=== PATIENT | male | born 1990 | race Caucasian/White ===

== ENCOUNTER 2022-09-02 03:34 | Day surgery (SDC) | payer OTHER, SELFPAY ==
--- NOTE | 2022-08-22 14:51 | PC.NURSE ---
Report to the Outpatient Waiting Room, entrance under the green pavilion located off [facility], at time _0600_ on date _09/02/22_. Planned Procedure Time: _0730_. Time changes happen often and if your time is changed the preop area will call you the afternoon before. - You and your visitor will be asked to self-screen and do not enter if you have any COVID symptoms. - A mask is optional within the hospital at this time. Patients may have clear liquids (water, carbonated beverages, clear teas, apple juice) until 3 hours prior to surgery with a maximum of 20 ounces. - No food from midnight until time of surgery - Infants may have breast milk until 4 hours before surgery, formula 6 hours prior to surgery. - Children will be allowed to drink immediately following surgery. If applicable, please bring a bottle or sippy cup to assist with drinking. Juice, water, soda, and popsicles are readily available. For infants on formula, please bring formula the day of surgery. Pacifiers are allowed. Take the following medications with a SIP of water the morning of surgery: _None__ DO NOT STOP ANY OF YOUR OTHER PRESCRIPTION MEDICATIONS PRIOR TO SURGERY ?EXCEPT THE FOLLOWING Medications to discontinue per physician _Supplement or vitamins 3 days prior to surgery__ Date to take last dose Please no make-up, nail kinyarwanda, hairspray, perfume, deodorant, or body powder the day of surgery. No jewelry (including any body piercings) or valuables the day of surgery, leave them at home. Please take a shower or bath the night before, or the morning of, surgery with an antibacterial soap. Wear comfortable, loose fitting clothing. Children are encouraged to wear pajamas. - Jewelry must be removed prior to entering the operating room. Rings and piercings that are not removed may be cut off. - The hospital will not accept responsibility for valuables. - Please leave all valuables, including medications, at home the day of surgery. If you are going home after surgery, a licensed grain combine driver must drive you home. - NO public transportation without another adult if you receive anesthesia. - We recommend that an adult stay with you for 24 hours following discharge. - We also recommend that you do not drive, make important decision, drink alcoholic beverages, or take any drugs that were not prescribed by your health care provider for at least 24 hours after your discharge time. For Pediatric surgeries, we recommend two adults accompany the child home. Follow any additional instructions given to you from your surgeon. If you or anyone in your household have experienced Covid symptoms in the past week, please notify your surgeon or the nurse liaison at the phone number below for possible testing. Telephone instructions given to _Patient__and asked if any additional questions and then verbalized understanding. Patient advised to call surgeon office or pre surgery nurse liaison [phone] if any additional questions.
[2022-08-22 14:59] VITALS: BMI 39.7
[2022-09-02] VITALS (8 sets, daily range): BP systolic 135–156; BP diastolic 88–100; PULSE 56–88; RESP 12–18; TEMP 36.7–36.8; O2SAT 94–100
[2022-09-02] MEDS: ACETAMINOPHEN 500 MG TABLET 1000 MG PO (06:36)
--- NOTE | 2022-09-02 06:44 | WPDANESEPPF ---
Anes - Initial Pre Proc Eval Procedure: Operation Date: 09/02/22 07:30 Proposed Procedures p Septoplasty, - Terry Paz MD s Bilateral Turbinate Reduction - Terry Paz MD Date/Time: 09/02/22 06:44 Surgeon: Terry Paz MD Pre Op Diagnosis: deviated septum, bilateral turbinate reduction Patient Data Age: 32 Gender: M Height: 1.96 m Weight: 149.2 kg Last Vital Signs Temp 36.8 C 09/02/22 06:22 Pulse 70 09/02/22 06:22 Resp 16 09/02/22 06:22 BP 148/88 H 09/02/22 06:22 Pulse Ox 98 09/02/22 06:22 O2 Del Method Room Air 09/02/22 06:22 Allergies Allergy/AdvReac Type Severity Reaction Status Date / Time No Known Allergies Allergy Verified 09/02/22 06:33 Home Medications Medication Instructions Recorded Confirmed Type fluticasone propionate 50 1 - 2 spray intranasal DAILY 08/22/22 09/02/22 History mcg/actuation nasal spray,suspension Patient hx anesthesia problems: none Family hx anesthesia problems: none Results Review: All pre-operative results and documents have been reviewed as part of the pre-operative evaluation. [facility] Past Medical History Medical History (Updated 09/02/22 @ 06:45 by Mike Victor MD) HTN (hypertension) Obesity CHNI on CPAP Surgical History Surgical History (Updated 09/02/22 @ 06:45 by Mike Victor MD) H/O wisdom tooth extraction Social History Social History Smoking status: Never smoker Alcohol intake: current Alcohol use details: Pt stated 0-3 a week Substance use: never Substance use type: does not use Living arrangements: with family Spiritual care concerns: No Anes - Eval Final PreProcedure Day of Procedure 09/02/22 06:44 Patient weight: obese Heart: regular rate and rhythm Lungs: clear to auscultation Airway: Mallampati scale class II Neurological: alert and oriented Last oral intake: >/= 8 hours ASA classification: III Emergent: no Anesthetic plan: proceed Anesthesia type and monitoring: general ETT and standard monitoring Results Review: All pre-operative results and documents have been reviewed as part of the pre-operative evaluation. Informed Consent: The patient's anesthetic plan and its attendant risks and benefits were discussed with the patient/family/POA. Questions were solicited and answers provided to the satisfaction of the patient/family/POA.
[2022-09-02] MEDS: LACTATED RINGERS 1,000 ML 30 ML IV CONT (06:56)
[2022-09-02] MEDS: OXYMETAZOLINE HCL 0.05% NAS 15 ML BTL (*BKC) 1 SPRAY NASAL (07:15)
--- NOTE | 2022-09-02 07:20 | PM.IMHP ---
H&P: HPI History of Present Illness Date/Time: 09/02/22 07:20 Chief Complaint: Nasal dyspnea Review of Systems Review of Systems: All systems reviewed & are unremarkable except as noted in HPI and below PMFSH Past Medical History Medical History HTN (hypertension) Obesity CHIN on CPAP Surgical History Surgical History H/O wisdom tooth extraction Social History Social History Smoking status: Never smoker Alcohol intake: current Alcohol use details: Pt stated 0-3 a week Substance use: never Substance use type: does not use Living arrangements: with family Spiritual care concerns: No Meds Home Medications and Allergies Home Medications Medication Instructions Recorded Confirmed Type fluticasone propionate 50 1 - 2 spray intranasal DAILY 08/22/22 09/02/22 History mcg/actuation nasal spray,suspension Allergies Allergy/AdvReac Type Severity Reaction Status Date / Time No Known Allergies Allergy Verified 09/02/22 06:33 Vital Signs Vital Signs - 24 hr 09/02/22 06:22 Temperature 36.8 C Pulse Rate 70 Respiratory Rate 16 Blood Pressure 148/88 H Pulse Oximetry 98 Oxygen Delivery Room Air Exam Narrative: deviated septum, turbinates. Rest of exam wnl Assessment and Plan Assessment and plan (1) Deviated septum: Code(s): J34.2 - Deviated nasal septum Status: Acute Plan Kendrick has CHIN and is here for correction of nasal septal deviation. r/b/a reviewed, all questions answered and he agrees to proceed with surgery today. Refer to outpt H&P for full details.
--- NOTE | 2022-09-02 07:21 | WPDHPUPDATE1 ---
History and Physical Update Update Date/Time: 09/02/22 07:21 History and Physical has been reviewed, including an updated exam of the patient. There are NO changes in the patient's condition. Risks, benefits, and alternatives have been discussed and questions answered. Patient agrees to proceed with procedure.
[2022-09-02] MEDS: ceFAZolin 3 GM/D5W 100 ML 100 ML IVPB (07:30)
[2022-09-02] MEDS: LIDOCAINE HCL 1% LOCAL INJ 20 ML VIAL 5 ML INFILTRATE (08:06)
--- NOTE | 2022-09-02 08:24 | W.PM.PROC2 ---
Procedure Note - Detailed Date of Procedure 09/02/22 Pre-op Diagnosis deviated septum, bilateral turbinate reduction Post-op Diagnosis Same Procedure Performed Septoplasty, bilateral inferior turbinoplasty Surgeon Terry Paz MD Anesthesia General Indications Chronic nasal dyspnea Findings Left septal spur, significant turbinate hypertrophy, bilateral garcia splints placed Description of Procedure After obtaining informed consent and proper site verification the patient was brought to the operating room and placed on the operating table in the supine position. They were placed under general endotracheal anesthesia by the anesthesia provider. The patient was then draped in standard fashion for septoplasty and turbinoplasty. A timeout was performed and the correct patient and procedure were verified. The nasal cavity was injected with 1% lidocaine with 1-100,000 epinephrine and packed with afrin-soaked cottonoid pledgets. ? Attention was then directed to the nasal septum. A hemitransfixion incision was made in the left caudal septum and a mucoperichondrial flap was elevated in the usual fashion. The flap was elevated under endoscopic visualization and the remainder of the case was performed with endoscopic assistance. Using a D-knife, an incision was made through the cartilaginous septum with care to preserve the appropriate caudal and dorsal ?L-strut? of cartilage. The cartilage was then disarticulated from the bony-cartilaginous junction and the deviated cartilage was removed. Further deviated bone and cartilage was removed from the maxillary crest and posterior bony septum with care to avoid injury to the mucoperichondrial flap using a combination of dissection and [place] forceps. Once this was completed, the hemitransfixion incision was closed using simple interrupted 4-0 chromic suture. A quilting stitch to reapproximate the mucoperichondrial flaps was then placed using 4-0 plain gut suture on a Brian needle. ? Next attention was directed to the turbinates. Using a 0? telescope and 2mm turbinate blade microdebrider, a stab incision was made in the anterior face of the turbinate and dissection was carried posterior to perform submucosal resection. Next the turbinate was outfractured using a blunt instrument. A similar procedure was then performed on the right-hand side without difficulty. Garcia splints covered in mupirocin ointment were placed in the nasal cavity and secured to the membranous septum using a 3-0 Prolene suture. ?The patient was awakened from general anesthesia extubated in the operating room, and transported to the recovery room in stable condition without complication. Estimated Blood Loss 10 Drains No Packing Yes (garcia splints) Pathology None sent Complications No immediate complications Condition Stable Disposition PACU
[2022-09-02] MEDS: fentaNYL CITRATE INJ (*CRX) 100 MCG/2 ML VIAL 25 MCG IV PUSH ×2 (08:45→08:48)
--- NOTE | 2022-09-02 09:01 | SUR.PHASEI ---
0900: Simple mask removed.
[2022-09-02] MEDS: oxyCODONE HCL (*CRX) 5 MG TAB IR PO (09:38)
== END 2022-09-02 10:20 | disposition home or self-care (01) ==
PROVIDERS: Visit Provider Otolaryngology
PROC: (CPT 30520; principal; 2022-09-02 07:30)
PROC: (CPT 30520; 2022-09-02 07:30)
DX: J34.2 Deviated nasal septum (principal); J34.3 Hypertrophy of nasal turbinates; I10 Essential (primary) hypertension; E66.9 Obesity, unspecified; Z68.39 Body mass index [BMI] 39.0-39.9, adult; G47.33 Obstructive sleep apnea (adult) (pediatric)
CPT/HCPCS: 30520; 30140; A9270; J0330; J0690; J1100; J2250; J2405; J2704; J3010; J7120